=== PATIENT | male | born 1995 | race Caucasian/White ===

== ENCOUNTER 2023-04-27 19:54 | Emergency (ER) | payer OTHER ==
[2023-04-27] MEDS ORDERED: Lidocaine 1% 10 ML MDV ONE (21:22)
== END 2023-04-27 22:39 | disposition swing bed (61) ==
LOC: JD.ED 19:54
DX: S81.012A Laceration without foreign body, left knee, initial encounter (principal); W25.XXXA Contact with sharp glass, initial encounter
CPT/HCPCS: 12001; 99282; 99283